=== PATIENT | female | born 1980 | race Caucasian/White ===

== ENCOUNTER 2018-12-13 18:09 | Emergency (ER) | payer MEDICAID ==
[2018-12-13] MEDS: LORAZEPAM 1 MG TAB PO (21:39)
== END 2018-12-13 22:33 | disposition home or self-care (01) ==
LOC: FTE 18:09
DX: F41.1 Generalized anxiety disorder (principal)
CPT/HCPCS: 71045; 81003; 81025; 93005; 99284-25